=== PATIENT | male | born 1990 | race Hispanic/Latino ===

== ENCOUNTER 2017-06-22 22:05 | Emergency (ER) | payer BC ==
[2017-06-23] MEDS ORDERED: DEXAMETHASONE SOD PHOSPHATE 10MG/ML 1ML VIAL ONE (00:11)
[2017-06-23] MEDS ORDERED: FAMOTIDINE 20MG TAB 20 MG TAB ONE (00:12)
[2017-06-23] MEDS ORDERED: DIPHENHYDRAMINE HCL 25 MG CAPSULE ONE (00:12)
== END 2017-06-23 00:50 | disposition home or self-care (01) ==
LOC: EDH 22:05
DX: L50.9 Urticaria, unspecified (principal); Z88.0 Allergy status to penicillin; Z72.0 Tobacco use
CPT/HCPCS: 96372; 99283; J1100; Q0163

== ENCOUNTER 2019-02-09 20:25 | Observation (INO) | payer BC, OTHER ==
[~2019-02-09] VITALS: Ht 177.8 cm; Wt 169.1 kg
[2019-02-09] MEDS ORDERED: ACETAMINOPHEN 325 MG TAB ONE (20:48)
[2019-02-09] MEDS ORDERED: SODIUM CHLORIDE 0.9% 1000ML 2,000 ML IV ONE (20:49)
[2019-02-09 20:56] LABS: APPEARANCE,URINE Clear (CLEAR); BILIRUBIN,URINE Negative (NEGATIVE); COLOR,URINE Yellow (YELLOW); GLUCOSE, URINE (UA) Negative (NEGATIVE); KETONES,URINE Negative (NEGATIVE); LEUKOCYTE ESTERASE ,URINE Negative (NEGATIVE); NITRATE,URINE Negative (NEGATIVE); OCCULT BLOOD,URINE Trace (NEGATIVE); PH,URINE 6.5 (5.0-8.0); PROTEIN,URINE Negative (NEGATIVE)
[2019-02-09 21:08] LABS: BACTERIA,URINE Rare /HPF (None Seen); RBC,URINE 0-1 /HPF (0-1); SQUAMOUS EPITHELIAL CELL,UR 0-2 /HPF (0-2); WBC,URINE 0-1 /HPF (0-1)
[2019-02-09 21:17] LABS: BASOPHILS % (AUTO) 0.3 % (0.0-5.0); EOSINOPHILS % (AUTO) 1.2 % (0.0-8.0); HEMATOCRIT 42.2 % (42-54); LYMPHOCYTES % (AUTO) 16.5 % (21.0-51.0); MEAN CORPUSCULAR HEMOGLOBIN 29.9 pg (27.0-33.0); MEAN CORPUSCULAR HGB CONC 34.9 g/dL (32.0-36.0); MEAN CORPUSCULAR VOLUME 85.6 fL (79-99); MONOCYTES % (AUTO) 10.6 % (3.0-13.0); NEUTROPHILS % (AUTO) 71.4 % (40.0-77.0); NUCLEATED RED BLOOD CELLS 0.1 % (0.0-0.19); PLATELET COUNT (AUTO) 196 K/uL (130-400); RED BLOOD CELL COUNT(AUTO) 4.93 MIL/uL (4.50-6.20); RED CELL DISTRIBUTION WIDTH 13.2 % (11.0-15.5); WHITE BLOOD COUNT (AUTO) 6.7 K/uL (4.8-10.8)
[2019-02-09] MEDS ORDERED: LEVOFLOXACIN 750 MG/D5W 150 ML 150 ML ONE (21:20)
[2019-02-09 21:26] LABS: CARBON DIOXIDE 29 mmol/L (21-32); CHLORIDE 101 mmol/L (101-111); GLOMERULAR FILTR. RATE CALC 94 mL/min (>60); GLUCOSE,RANDOM 163 mg/dL (70-105); POTASSIUM 3.7 mmol/L (3.5-5.1); SODIUM SERUM 137 mmol/L (136-145); UREA NITROGEN, BLOOD 10 mg/dL (7-18)
[2019-02-09 21:31] LABS: PARTIAL THROMBOPLASTIN TIME 28.2 SEC (26.3-35.5); PROTHROMBIN TIME 10.5 SEC (9.6-11.6)
[2019-02-09 21:47] LABS: ALANINE AMINOTRANSFERASE 125 U/L (12-78); ALBUMIN 3.5 g/dL (3.5-5.0); ASPARTATE AMINOTRANSFERASE 91 U/L (10-37); BILIRUBIN,TOTAL 0.4 mg/dL (0.2-1.0); CREATINE KINASE, TOTAL 194 U/L (21-232); MYOGLOBIN 138 ng/mL (10-92); TROPONIN I < 0.04 ng/mL (0.00-0.06)
[2019-02-09] MEDS ORDERED: OSELTAMIVIR PHOSPHATE 75 MG CAP ONE (21:54)
[2019-02-09] MEDS ORDERED: SODIUM CHLORIDE 0.9% 1000ML 1,000 ML IV SCH (23:18)
[2019-02-09] MEDS: METHYLPREDNISOLONE SOD SUCC 125MG/2ML VIAL IV SCH (23:30)
[2019-02-09] MEDS ORDERED: ONDANSETRON HCL 4 MG/2 ML VIAL IV PRN (23:30)
[2019-02-09] MEDS ORDERED: ACETAMINOPHEN 325 MG TAB PO PRN ×2 (23:30)
[2019-02-09] MEDS ORDERED: METHYLPREDNISOLONE SOD SUCC 40MG/ML 1ML ONE (23:51)
[2019-02-09] MEDS ORDERED: SODIUM CHLORIDE 0.9% 1000ML 1,000 ML IV ONE (23:52)
[2019-02-10 00:30] VITALS: BP 139/62
[2019-02-10] MEDS ORDERED: FLU VACC QS2019-20 36MOS UP/PF 60 MCG/0.5 ML ML IM PRN (01:30)
[2019-02-10] MEDS ORDERED: GUAIFENESIN-CODEINE 5 ML SYRUP PO PRN (03:30)
[2019-02-10 04:00] VITALS: BP 138/66
[2019-02-10 05:32] LABS: BASOPHILS % (AUTO) 0.2 % (0.0-5.0); EOSINOPHILS % (AUTO) 0.1 % (0.0-8.0); HEMATOCRIT 43.1 % (42-54); LYMPHOCYTES % (AUTO) 17.2 % (21.0-51.0); MEAN CORPUSCULAR HEMOGLOBIN 29.4 pg (27.0-33.0); MEAN CORPUSCULAR HGB CONC 34.3 g/dL (32.0-36.0); MEAN CORPUSCULAR VOLUME 85.8 fL (79-99); MONOCYTES % (AUTO) 4.6 % (3.0-13.0); NEUTROPHILS % (AUTO) 77.9 % (40.0-77.0); PLATELET COUNT (AUTO) 225 K/uL (130-400); RED BLOOD CELL COUNT(AUTO) 5.02 MIL/uL (4.50-6.20); RED CELL DISTRIBUTION WIDTH 13.2 % (11.0-15.5)
[2019-02-10 05:48] LABS: ALBUMIN 3.4 g/dL (3.5-5.0); BILIRUBIN,TOTAL 0.3 mg/dL (0.2-1.0); CREATININE 0.8 mg/dL (0.5-1.5); POTASSIUM 4.6 mmol/L (3.5-5.1); TOTAL PROTEIN, SERUM 8.1 g/dL (6.0-8.3)
[2019-02-10 08:02] VITALS: BP 115/69
[2019-02-10] MEDS ORDERED: OSELTAMIVIR PHOSPHATE 75 MG CAP PO SCH (09:00)
[2019-02-10] MEDS ORDERED: LEVOFLOXACIN 750 MG/D5W 150 ML 150 ML IV SCH (09:00)
[2019-02-10] MEDS ORDERED: ENOXAPARIN SODIUM 30 MG/0.3 ML SQ SCH (09:00)
[2019-02-10] MEDS ORDERED: FAMOTIDINE/PF 20 MG/2 ML VIAL IV SCH (09:00)
[2019-02-10] MEDS: METHYLPREDNISOLONE SOD SUCC 125MG/2ML VIAL IV SCH ×2 (09:15→17:16)
[2019-02-10 11:37] VITALS: BP 122/78
--- NOTE | 2019-02-10 12:36 | NUR ---
pt requesting cough medicine; kamilla ford
--- NOTE | 2019-02-10 12:42 | NUR ---
DC PLAN PER PATIENT HE IS INDEPENDENT, LIVES WITH SPOUSE, NO PROVIDER, NO EQUIPMENT AND FEELS SAFE TO RETURN HOME. Addendum: 02/10/19 at 1243 by JESUSITA POON RN CM Amended: Links added.
[2019-02-10 16:07] VITALS: BP 128/74
[2019-02-10 19:15] VITALS: BP 145/80
[2019-02-10] MEDS ORDERED: OSEL75 PO (21:51)
== END 2019-02-10 23:10 | disposition home or self-care (01) ==
LOC: EDH 20:25 → EDHIP 23:18 → 4CH 02-10 00:24
PROVIDERS: ADMIT Internal Medicine; ATTEND Internal Medicine
DX: J10.1 Influenza due to other identified influenza virus with other respiratory manifestations (principal); A41.9 Sepsis, unspecified organism; R65.10 Systemic inflammatory response syndrome (SIRS) of non-infectious origin without acute organ dysfunction; R73.9 Hyperglycemia, unspecified; R53.1 Weakness; R74.0 Nonspecific elevation of levels of transaminase and lactic acid dehydrogenase [LDH]; I87.2 Venous insufficiency (chronic) (peripheral); E66.01 Morbid (severe) obesity due to excess calories; Z23 Encounter for immunization; Z88.0 Allergy status to penicillin; Z68.43 Body mass index [BMI] 50.0-59.9, adult
CPT/HCPCS: 36415 ×2; 71045; 80053 ×2; 81001; 82550; 83605 ×2; 83874; 84145; 84484; 85025 ×2; 85610; 85730; 87040 ×2; 87088; 87804 ×2; 90471; 93005; 96372; 96374; 96375; 96376; 99284; G0378 ×24; J1650; J1956 ×2; J2920; J2930 ×2; J3490; J7030 ×2; Q2035; G0008